=== PATIENT | female | born 1990 | race Caucasian/White ===

== ENCOUNTER 2017-05-13 14:22 | Emergency (ER) | payer BC ==
--- NOTE | 2017-05-13 14:45 | ED Physician Documentation ---
PD HPI LOWER EXT INJURY - Stated complaint Stated Complaint: R ANKLE INJ - Chief complaint Chief Complaint: Ext Problem - History obtained from History obtained from: Patient - History of Present Illness PD HPI LOW EXT INJURY LOCATION: Right, Ankle Type of injury: Twist (inversion) Timing - onset: Today Timing - details: Abrupt onset, Still present Improved by: Rest Worsened by: Moving, Palpating Associated symptoms: Numbness (in toes), Swelling. No: Weakness Similar symptoms before: Has not had sx before Recently seen: Not recently seen Review of Systems Skin: denies: Abrasion (s), Laceration (s) Neurologic: reports: Numbness (in toes). 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 Past Surgical History: Yes General: Gastric surgery HEENT: Tonsil/Adenoidectomy - Present Medications Home Medications: Ambulatory Orders Medication Instructions Recorded Confirmed Multivitamin [Multiple Vitamins] 1 each PO DAILY 05/13/17 05/13/17 - Allergies Allergies/Adverse Reactions: Allergies Allergy/AdvReac Type Severity Reaction Status Date / Time Penicillins Allergy Hives Verified 05/13/17 14:32 - Social History Does the pt smoke?: Yes Smoking Status: Current every day smoker Does the pt drink ETOH?: Yes Does the pt have substance abuse?: No - Immunizations Immunizations are current?: Yes - POLST Patient has POLST: No PD ED PE NORMAL - Vitals Vital signs reviewed: Yes - General General: Alert and oriented X 3, No acute distress, Well developed/nourished - Derm Derm: Normal color, Warm and dry, No rash - Extremities Extremities: No deformity, No calf tenderness / cord, Other (tender lateral malleolus and inferior to it. Achilles and medial ankle, foot not tender. ) - Neuro Neuro: Alert and oriented X 3, No motor deficit, No sensory deficit Results - Vitals Vitals: Vital Signs - 24 hr 05/13/17 05/13/17 14:29 15:59 Temperature 37.1 C 36.7 C Heart Rate 99 99 Respiratory 16 18 Rate Blood Pressure 141/91 H 140/85 H O2 Saturation 100 97 Oxygen O2 Source Room air - Labs Labs: Laboratory Tests 05/13/17 14:45 Ur Specific [place] <=1.005 Urine HCG, Qual NEGATIVE - Rads (name of study) right ankle Radiology: Prelim report reviewed (no fracture) PD MEDICAL DECISION MAKING - ED course Complexity details: reviewed results, considered differential, d/w patient Departure - Departure Disposition: 01 Home, Self Care Clinical Impression: Ankle sprain Qualifiers: Encounter type: initial encounter Involved ligament of ankle: other ligament Laterality: right Qualified Code(s): S93.491A - Sprain of other ligament of right ankle, initial encounter Condition: Stable Record reviewed to determine appropriate education?: Yes Instructions: ED Sprain Ankle W X Ray Follow-Up: Carlie Romo ARNP [Primary Care Provider] - Comments: Slade wrap ice and elevate often for the swelling. Tylenol or ibuprofen as needed for pains. There is no fractures on x-ray. However for the sprain you do want to give the ligaments some support and to use the ankle brace when up and around for the next 2-3 weeks until fully healed. Crutches if needed for discomfort short-term but progress weightbearing and activity as able. Recheck if not better in the next week or so. Discharge Date/Time: 05/13/17 16:04
[2017-05-13 14:59] LABS: HCG UR QUAL NEGATIVE
--- NOTE | 2017-05-13 15:36 | XRAY Preliminary Report ---
Exam: XR ANKLE 3 VIEW RT IMPRESSION: No evidence of fracture or dislocation. [facility] SITE ID: [id number]
--- NOTE | 2017-05-13 15:39 | XRAY Report ---
EXAM: RIGHT ANKLE RADIOGRAPHY EXAM DATE: 05/13/2017 03:16 PM. CLINICAL HISTORY: Ankle pain COMPARISON: None. TECHNIQUE: 3 views. FINDINGS: Bones: No fracture or focal bony lesion. Joints: No evidence of dislocation. Soft Tissues: There is lateral ankle soft tissue swelling. IMPRESSION: No evidence of fracture or dislocation. [facility] Referring Provider Line: [phone] SITE ID: [id number]
[2017-05-13 15:59] VITALS: BP 140/85
== END 2017-05-13 16:04 | disposition home or self-care (01) ==
LOC: ED 14:22
DX: S93.491A Sprain of other ligament of right ankle, initial encounter (principal); X50.9XXA Other and unspecified overexertion or strenuous movements or postures, initial encounter; F17.200 Nicotine dependence, unspecified, uncomplicated
CPT/HCPCS: 81025; 99283

== ENCOUNTER 2017-11-13 10:50 | Emergency (ER) | payer BC ==
[2017-11-13 11:35] LABS: BASOPHILS # (AUTO) 0.1 10^3/uL (0.0-0.1); BASOPHILS % (AUTO) 1.3 %; EOSINOPHILS # (AUTO) 0.2 10^3/uL (0.0-0.7); EOSINOPHILS % (AUTO) 3.1 %; HGB - HEMOGLOBIN 11.7 g/dL (12.0-16.0); LYMPHOCYTES % (AUTO) 26.9 %; MEAN CORPUSCULAR HEMOGLOBIN 26.8 pg (27.0-31.0); MEAN CORPUSCULAR VOLUME 81.2 fL (81.0-99.0); MEAN PLATELET VOLUME 8.7 fL (7.9-10.8); MONOCYTES # (AUTO) 0.7 10^3/uL (0.0-1.0); MONOCYTES % (AUTO) 9.3 %; NEUTROPHILS # (AUTO) 4.4 10^3/uL (1.5-6.6); NEUTROPHILS % (AUTO) 59.4 %; PLT - PLATELET COUNT 261 10^3/uL (130-450); RED BLOOD COUNT 4.36 10^6/uL (4.20-5.40); RED CELL DISTRIBUTION WIDTH 18.1 % (12.0-15.0); WHITE BLOOD COUNT 7.3 x10^3/uL (4.8-10.8)
[2017-11-13 11:39] LABS: BILIRUBIN,URINE NEGATIVE (NEGATIVE); GLUCOSE, URINE (UA) NEGATIVE (NEGATIVE); KETONES,URINE (UA) NEGATIVE (NEGATIVE); LEUKOCYTE ESTERASE, URINE NEGATIVE (NEGATIVE); NITRITE,URINE POSITIVE (NEGATIVE); OCCULT BLOOD,URINE NEGATIVE (NEGATIVE); PH,URINE 5.5 PH (5.0-7.5); PROTEIN,URINE NEGATIVE (NEGATIVE); UROBILINOGEN,URINE 0.2 (NORMAL) E.U./dL (NORMAL)
[2017-11-13 11:40] LABS: ALBUMIN 4.2 g/dL (3.2-5.5); ALBUMIN/GLOBULIN RATIO 1.1 (1.0-2.2); BILIRUBIN,TOTAL 0.3 mg/dL (0.2-1.0); CALCIUM 8.6 mg/dL (8.5-10.3); CREATININE 0.8 mg/dL (0.4-1.0); TOTAL PROTEIN 7.9 g/dL (6.7-8.2)
[2017-11-13 11:42] LABS: CLARITY,URINE CLEAR (CLEAR); HCG UR QUAL NEGATIVE
[2017-11-13 11:48] LABS: BACTERIA,URINE Many /HPF (None Seen); RBC,URINE None Seen /HPF (0-5); SQUAMOUS EPITHELIAL CELL,UR RARE Squamous (<= Few)
--- NOTE | 2017-11-13 12:34 | CT Report ---
EXAM: CT ABDOMEN AND PELVIS EXAM DATE: 11/13/2017 12:10 PM. CLINICAL HISTORY: RLQ pain. COMPARISONS: 03/22/2015. TECHNIQUE: Routine helical CT imaging was performed through the abdomen and pelvis. IV contrast: No. Enteric contrast: No. Reconstructions: Coronal and sagittal. In accordance with CT protocol optimization, one or more of the following dose reduction techniques w ere utilized for this exam: automated exposure control, adjustment of mA and/or KV based on patient s ize, or use of iterative reconstructive technique. FINDINGS: Lung Bases: Unremarkable. Liver: The focal abnormal low density, 1 cm in the left lobe near the falciform ligament unchanged, s uggesting focal fatty replacement, of uncertain clinical significance; no lobular contour changes or masses. Gallbladder/Bile Ducts: Unremarkable. Spleen: Normal. Pancreas: Normal. Adrenal Glands: Normal. Kidneys: No stone, masses or hydronephrosis. Peritoneal Cavity/Bowel: 1. No free fluid, free air or adenopathy. 2. Status post gastric bypass is noted, unremarkable. The prior distended stomach and the percutaneou s gastrostomy tube are no longer seen. 3. No bowel dilatation, thickened bowel wall or acute inflammatory process. The appendix is well visu alized and normal. Pelvic Organs: There is a new lesion with hyperdense rim in the right ovary, likely a hemorrhagic cys t, 1.3 cm in diameter. IUD is again seen, unremarkable location. The bladder and visualized pelvic or lucila are within normal limits. Vasculature: No aneurysms or other significant abnormality. Bones: No significant abnormality. Other: No hernia seen. The prior foci of deep subcutaneous soft tissue gas in the bilateral anterior mid abdomen and the left lower abdomen are no longer visualized. IMPRESSION: 1. Normal appendix. 2. New right ovarian hemorrhagic cyst, 1.3 cm in diameter. 3. Status post gastric pass, unremarkable. Interval resolution of the distended stomach and removal o f the percutaneous gastrostomy tube. Negative for obstruction. 4. Negative for renal stone, hydronephrosis or perirenal fat stranding. [facility] Referring Provider Line: [phone] SITE ID: [id number]
--- NOTE | 2017-11-13 12:50 | ED Physician Documentation ---
PD HPI ABD PAIN - Stated complaint Stated Complaint: ABD PX - Chief complaint Chief Complaint: Abd Pain - History obtained from History obtained from: Patient - History of Present Illness Timing - onset: Yesterday Timing - duration: Days (1) Timing - details: Gradual onset, Still present, Waxing and waning Quality: Sharp, Pain Location: RLQ Improved by: Laying still Worsened by: Moving, Position, Palpation Associated symptoms: Nausea. No: Vomiting, Hematemesis, Diarrhea, Constipation , Dysuria, Hematuria, Chest pain, Dizzy Similar symptoms before: Has not had sx before Recently seen: Not recently seen - Additional information Additional information: 27-year-old female who is status post Shelley-en-Y has developed some right lower quadrant abdominal pain beginning yesterday. She felt when this started yesterday that she was having some abnormal pelvic cramping consistent with what she has had with menses previously. She has an IUD in place and has not been having menses. She has somewhat decreased appetite no fever persistent pain and she is come to the emergency department for evaluation of right lower quadrant abdominal pain. Review of Systems Constitutional: denies: Fever, Chills, Myalgias Eyes: denies: Decreased vision Ears: denies: Ear pain Nose: denies: Congestion Throat: denies: Sore throat Cardiac: denies: Chest pain / pressure, Palpitations Respiratory: denies: Dyspnea, Cough GI: reports: Abdominal Pain, Nausea. 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 - Past Surgical History Past Surgical History: Yes General: Gastric surgery HEENT: Tonsil/Adenoidectomy - Present Medications Home Medications: Ambulatory Orders Medication Instructions Recorded Confirmed Multivitamin [Multiple Vitamins] 1 each PO DAILY 05/13/17 05/13/17 HYDROcod/ACETAM 5/325 [[place] 5/325] 1 - 2 ea PO Q6H PRN #15 tablet 11/13/17 - Allergies Allergies/Adverse Reactions: Allergies Allergy/AdvReac Type Severity Reaction Status Date / Time Penicillins Allergy Hives Verified 11/13/17 10:58 - Social History Does the pt smoke?: Yes Smoking Status: Current every day smoker Does the pt drink ETOH?: Yes Does the pt have substance abuse?: No - Immunizations Immunizations are current?: Yes - POLST Patient has POLST: No PD ED PE NORMAL - Vitals Vital signs reviewed: Yes (Tachycardic and hypertensive mild) - General General: Alert and oriented X 3, No acute distress, Well developed/nourished - HEENT HEENT: Atraumatic, PERRL, EOMI - Neck Neck: Supple, no meningeal sign, No bony TTP - Cardiac Cardiac: RRR, No murmur - Respiratory Respiratory: No respiratory distress, Clear bilaterally - Abdomen Abdomen: Soft, Other (There is right lower quadrant tenderness to deep palpation. There is minimal guarding there is no rebound tenderness there is no referred tenderness.) - Back Back: No CVA TTP, No spinal TTP - Derm Derm: Normal color, Warm and dry, No rash - Extremities Extremities: No deformity, No edema - Neuro Neuro: No motor deficit, No sensory deficit Eye Opening: Spontaneous Motor: Obeys Commands Verbal: Oriented GCS Score: 15 - Psych Psych: Normal mood, Normal affect Results - Vitals Vitals: Vital Signs - 24 hr 11/13/17 11/13/17 10:53 12:19 Temperature 37.3 C Heart Rate 102 H 84 Respiratory 18 16 Rate Blood Pressure 133/84 H 131/86 H O2 Saturation 100 97 Oxygen O2 Source Room air - Labs Labs: Laboratory Tests 11/13/17 11/13/17 11/13/17 11:10 11:10 11:10 WBC 7.3 RBC 4.36 Hgb 11.7 L Hct 35.4 L MCV 81.2 MCH 26.8 L MCHC 33.0 RDW 18.1 H Plt Count 261 MPV 8.7 Neut # 4.4 Lymph # 2.0 [place] # 0.7 Eos # 0.2 Baso # 0.1 Absolute Nucleated RBC 0.00 Nucleated RBC % 0.0 Sodium 136 Potassium 4.0 Chloride 103 Carbon Dioxide 19 L Anion Gap 14.0 H BUN 7 Creatinine 0.8 Estimated GFR (MDRD) 85 L Glucose 82 Calcium 8.6 Total Bilirubin 0.3 AST 35 ALT 26 Alkaline Phosphatase 45 Total Protein 7.9 Albumin 4.2 Globulin 3.7 Albumin/Globulin Ratio 1.1 Lipase 27 Urine Color Urine Clarity Urine pH Ur Specific [place] <=1.005 Urine Protein Urine Glucose (UA) Urine Ketones Urine Occult Blood Urine Nitrite Urine Bilirubin Urine Urobilinogen Ur Leukocyte Esterase Urine RBC Urine WBC Ur Squamous Epith Cells Urine Bacteria Ur Microscopic Review Urine Culture Comments Urine HCG, Qual NEGATIVE 11/13/17 11:10 WBC RBC Hgb Hct MCV MCH MCHC RDW Plt Count MPV Neut # Lymph # [place] # Eos # Baso # Absolute Nucleated RBC Nucleated RBC % Sodium Potassium Chloride Carbon Dioxide Anion Gap BUN Creatinine Estimated GFR (MDRD) Glucose Calcium Total Bilirubin AST ALT Alkaline Phosphatase Total Protein Albumin Globulin Albumin/Globulin Ratio Lipase Urine Color YELLOW Urine Clarity CLEAR Urine pH 5.5 Ur Specific [place] <=1.005 Urine Protein NEGATIVE Urine Glucose (UA) NEGATIVE Urine Ketones NEGATIVE Urine Occult Blood NEGATIVE Urine Nitrite POSITIVE H Urine Bilirubin NEGATIVE Urine Urobilinogen 0.2 (NORMAL) Ur Leukocyte Esterase NEGATIVE Urine RBC None Seen Urine WBC 0-3 Ur Squamous Epith Cells RARE Squamous Urine Bacteria Many H Ur Microscopic Review INDICATED Urine Culture Comments INDICATED Urine HCG, Qual - Rads (name of study) CT abdomen and pelvis Radiology: Prelim report reviewed (Impression: 1. Normal appendix. 2. New right ovarian hemorrhagic cyst, 1.3 cm in diameter. 3. Status post gastric bypass, unremarkable. Interval resolution of the distended stomach and removal of percutaneous gastrostomy tube. Negative for obstruction. 4. Negative for renal stone, hydronephrosis or perirenal fat stranding.), EMP read indepedently , See rad report PD MEDICAL DECISION MAKING - ED course Complexity details: reviewed old records, reviewed results, re-evaluated patient , considered differential, d/w patient ED course: 27-year-old female status post Shelley-en-Y has developed right lower quadrant abdominal pain and on CT scanning appears to have a small right hemorrhagic ovarian cyst. This is consistent with the history and physical examination as well. We will place her on a short course of pain medication as needed and expect resolution. Departure - Departure Disposition: 01 Home, Self Care Clinical Impression: Hemorrhagic cyst of right ovary Condition: Stable Instructions: ED Cyst Ovarian Follow-Up: Carlie Romo ARNP [Primary Care Provider] - Prescriptions: HYDROcod/ACETAM 5/325 [[place] 5/325] 1 - 2 ea PO Q6H PRN #15 tablet PRN Reason: Pain
[2017-11-13 13:08] VITALS: BP 146/84
== END 2017-11-13 13:08 | disposition home or self-care (01) ==
LOC: ED 10:50
DX: N83.201 Unspecified ovarian cyst, right side (principal); F17.200 Nicotine dependence, unspecified, uncomplicated
CPT/HCPCS: 36415; 74176; 80053; 81001; 81003; 81025; 83690; 85025; 87077; 87086; 99283

== ENCOUNTER 2017-11-27 10:56 | Outpatient (CLI) | payer BC ==
[2017-11-27 11:45] LABS: BASOPHILS # (AUTO) 0.1 10^3/uL (0.0-0.1); BASOPHILS % (AUTO) 2.1 %; EOSINOPHILS # (AUTO) 0.2 10^3/uL (0.0-0.7); EOSINOPHILS % (AUTO) 3.4 %; HGB - HEMOGLOBIN 11.6 g/dL (12.0-16.0); LYMPHOCYTES # (AUTO) 1.6 10^3/uL (1.5-3.5); LYMPHOCYTES % (AUTO) 33.3 %; MEAN CORPUSCULAR HEMOGLOBIN 26.8 pg (27.0-31.0); MEAN CORPUSCULAR HGB CONC 32.8 g/dL (32.0-36.0); MEAN CORPUSCULAR VOLUME 81.6 fL (81.0-99.0); MEAN PLATELET VOLUME 8.7 fL (7.9-10.8); MONOCYTES # (AUTO) 0.5 10^3/uL (0.0-1.0); MONOCYTES % (AUTO) 9.8 %; NEUTROPHILS # (AUTO) 2.4 10^3/uL (1.5-6.6); NEUTROPHILS % (AUTO) 51.4 %; PLT - PLATELET COUNT 229 10^3/uL (130-450); RED BLOOD COUNT 4.34 10^6/uL (4.20-5.40); RED CELL DISTRIBUTION WIDTH 17.7 % (12.0-15.0); WHITE BLOOD COUNT 4.7 x10^3/uL (4.8-10.8)
[2017-11-27 11:59] LABS: ALBUMIN 4.2 g/dL (3.2-5.5); ALBUMIN/GLOBULIN RATIO 1.2 (1.0-2.2); ALKALINE PHOSPHATASE 43 IU/L (42-121); ALT ALANINE AMINOTRANSFERASE 35 IU/L (10-60); AST ASPARTATE AMINOTRANSFERASE 65 IU/L (10-42); BILIRUBIN,TOTAL 0.8 mg/dL (0.2-1.0); BUN - BLOOD UREA NITROGEN < 5 mg/dL (6-20); CALCIUM 8.6 mg/dL (8.5-10.3); CARBON DIOXIDE - CO2 22 mmol/L (21-32); CHLORIDE 102 mmol/L (101-111); CREATININE 0.6 mg/dL (0.4-1.0); GFR - MDRD 118 (>89); GLUCOSE 78 mg/dL (70-100); SODIUM 135 mmol/L (135-145); TOTAL PROTEIN 7.6 g/dL (6.7-8.2)
[2017-11-27 12:16] LABS: FERRITIN 13.6 ng/mL (11.0-306.8)
[2017-11-27 12:19] LABS: FOLATE 19.72 ng/mL (5.90 - >24.8)
[2017-11-27 12:25] LABS: CRP - C-REACTIVE PROTEIN < 1.0 mg/dL (0-1.0)
== END 2017-11-27 10:57 | disposition home or self-care (01) ==
LOC: LAB.R 10:56
PROVIDERS: ATTEND Nurse Practitioner Primary Care
DX: D64.9 Anemia, unspecified (principal); Z79.899 Other long term (current) drug therapy; R58 Hemorrhage, not elsewhere classified
CPT/HCPCS: 80053; 82607; 82728; 82746; 85025; 85651; 86140

== ENCOUNTER 2018-04-12 07:54 | Emergency (ER) | payer BC ==
[2018-04-12] MEDS ORDERED: SODIUM CHLORIDE 0.9% 1,000 ML IV ONE (08:22)
[2018-04-12 08:29] LABS: BILIRUBIN,URINE NEGATIVE (NEGATIVE); GLUCOSE, URINE (UA) NEGATIVE (NEGATIVE); KETONES,URINE (UA) NEGATIVE (NEGATIVE); LEUKOCYTE ESTERASE, URINE NEGATIVE (NEGATIVE); NITRITE,URINE POSITIVE (NEGATIVE); OCCULT BLOOD,URINE NEGATIVE (NEGATIVE); PROTEIN,URINE NEGATIVE (NEGATIVE); UROBILINOGEN,URINE 0.2 (NORMAL) E.U./dL (NORMAL)
[2018-04-12 08:33] LABS: CLARITY,URINE HAZY (CLEAR); HCG UR QUAL NEGATIVE
[2018-04-12] MEDS ORDERED: MORPHINE 2 MG/ML CARPUJECT IVP STA (08:33)
[2018-04-12] MEDS ORDERED: ONDANSETRON 4 MG/2 ML VIAL IVP STA (08:33)
--- NOTE | 2018-04-12 08:36 | ED Physician Documentation ---
History of Present Illness - Stated complaint Stated Complaint: ABD PX - Chief complaint Chief Complaint: General - Additonal information Additional information: hx from pt 27 f IUD doubt preg s/p peter n Y 2007 - does not think GB was removed at that time 2015 had what sounds like volvulus with subsequent perf and sepsis transferred to [facility] for surgery also ovarian cyst this January to ED today with 5 days of diffuse abd pain, no NV, loose non bloody BMs, no dysuria, no ag bleed or dc, mylagias and rigors but no fever, shaky all over no travel no bad food no sick contacts last antibiotics were January Review of Systems Constitutional: reports: Chills, Myalgias. denies: Fever Cardiac: reports: Chest pain / pressure (occ fleeting) Respiratory: denies: Dyspnea GI: reports: Abdominal Pain, Diarrhea. denies: Nausea, Vomiting, Bloody / black stool : reports: Control (IUD). 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 Past Surgical History: Yes General: Gastric surgery HEENT: Tonsil/Adenoidectomy - Present Medications Home Medications: Ambulatory Orders Medication Instructions Recorded Confirmed Multivitamin [Multiple Vitamins] 1 each PO DAILY 05/13/17 05/13/17 HYDROcod/ACETAM 5/325 [[place] 5/325] 1 - 2 ea PO Q6H PRN #15 tablet 11/13/17 Cephalexin [Keflex] 500 mg PO Q6H #28 capsule 04/12/18 Phenazopyridine [Pyridium] 100 mg PO Q8H PRN #9 tablet 04/12/18 - Allergies Allergies/Adverse Reactions: Allergies Allergy/AdvReac Type Severity Reaction Status Date / Time Penicillins Allergy Hives Verified 04/12/18 08:04 - Social History Does the pt smoke?: Yes Smoking Status: Current every day smoker Does the pt drink ETOH?: Yes Does the pt have substance abuse?: No - Immunizations Immunizations are current?: Yes - POLST Patient has POLST: No PD ED PE NORMAL - Vitals Vital signs reviewed: Yes (tachy) - General General: Alert and oriented X 3 - HEENT HEENT: No: Moist mucous membranes (sticky) - Neck Neck: Supple, no meningeal sign - Cardiac Cardiac: RRR (tachy) - Respiratory Respiratory: No respiratory distress, Clear bilaterally - Abdomen Abdomen: Soft, Other (diffuse TTP upper > lower s guaring or reboudn and pt moves about in bed easily). No: Normal bowel sounds (decreased) - Back Back: No CVA TTP, Other (back soreness per pt but not focal CVA TTP) - Derm Derm: Normal color - Neuro Neuro: Alert and oriented X 3 Results - Vitals Vitals: Vital Signs - 24 hr 04/12/18 04/12/18 04/12/18 08:00 11:02 13:15 Temperature 36.4 C L 37.1 C 37.0 C Heart Rate 133 H 78 72 Respiratory 18 16 18 Rate Blood Pressure 157/105 H 131/90 H 136/89 H O2 Saturation 99 98 99 Oxygen O2 Source Room air - Labs Labs: Laboratory Tests 04/12/18 04/12/18 04/12/18 08:24 08:36 08:36 WBC 4.8 RBC 4.16 L Hgb 11.3 L Hct 33.6 L MCV 80.7 L MCH 27.1 MCHC 33.6 RDW 18.1 H Plt Count 231 MPV 8.1 Neut # (Auto) 2.8 Lymph # (Auto) 1.0 L [place] # (Auto) 0.8 Eos # (Auto) 0.1 Baso # (Auto) 0.1 Absolute Nucleated RBC 0.00 Nucleated RBC % 0.0 Sodium 135 Potassium 3.9 Chloride 100 L Carbon Dioxide 21 Anion Gap 14.0 H BUN 7 Creatinine 0.8 Estimated GFR (MDRD) 85 L Glucose 76 Lactic Acid Calcium 8.9 Total Bilirubin 0.6 AST 104 H ALT 63 H Alkaline Phosphatase 48 Total Protein 8.0 Albumin 4.4 Globulin 3.6 Albumin/Globulin Ratio 1.2 Lipase 38 Urine Color YELLOW Urine Clarity HAZY Urine pH 6.0 Ur Specific [place] 1.025 Urine Protein NEGATIVE Urine Glucose (UA) NEGATIVE Urine Ketones NEGATIVE Urine Occult Blood NEGATIVE Urine Nitrite POSITIVE H Urine Bilirubin NEGATIVE Urine Urobilinogen 0.2 (NORMAL) Ur Leukocyte Esterase NEGATIVE Urine RBC 0-5 Urine WBC 0-3 Ur Squamous Epith Cells MOD Squamous H Urine Bacteria Many H Urine Casts 0-2 Granular Casts Ur Microscopic Review INDICATED Urine Culture Comments NOT INDICATED Urine HCG, Qual NEGATIVE 04/12/18 04/12/18 08:36 11:45 WBC RBC Hgb Hct MCV MCH MCHC RDW Plt Count MPV Neut # (Auto) Lymph # (Auto) [place] # (Auto) Eos # (Auto) Baso # (Auto) Absolute Nucleated RBC Nucleated RBC % Sodium Potassium Chloride Carbon Dioxide Anion Gap BUN Creatinine Estimated GFR (MDRD) Glucose Lactic Acid 2.8 H 0.6 Calcium Total Bilirubin AST ALT Alkaline Phosphatase Total Protein Albumin Globulin Albumin/Globulin Ratio Lipase Urine Color Urine Clarity Urine pH Ur Specific [place] Urine Protein Urine Glucose (UA) Urine Ketones Urine Occult Blood Urine Nitrite Urine Bilirubin Urine Urobilinogen Ur Leukocyte Esterase Urine RBC Urine WBC Ur Squamous Epith Cells Urine Bacteria Urine Casts Ur Microscopic Review Urine Culture Comments Urine HCG, Qual - Rads (name of study) CT AP Radiology: See rad report (with PO and IV con - no acute process, s/p gastric bypass, has GB and appendix but no acute process, no perf, no PO con leak, no SBO, ant ovarian cyst ) PD MEDICAL DECISION MAKING - ED course ED course: CT neg for acute process labs fine except + UA CT neg for acute process (with PO and IV con) - no leak, no perf, no volvulus, no SBO, no acute lowell or appy, ant ovarian cysts s evidnece of torsion (IV con) or FF/rupture HR down and lactate cleared with IVF will reasses but hopefully DC - Sepsis Event Vital Signs: Vital Signs - 24 hr 04/12/18 04/12/18 04/12/18 08:00 11:02 13:15 Temperature 36.4 C L 37.1 C 37.0 C Heart Rate 133 H 78 72 Respiratory 18 16 18 Rate Blood Pressure 157/105 H 131/90 H 136/89 H O2 Saturation 99 98 99 Oxygen O2 Source Room air Departure - Departure Disposition: 01 Home, Self Care Clinical Impression: Abdominal pain Condition: Good Instructions: ED Abdominal Pain Unkn Cause, ED UTI Cystitis Female Follow-Up: Carlie Romo ARNP [Primary Care Provider] - Prescriptions: Cephalexin [Keflex] 500 mg PO Q6H #28 capsule Phenazopyridine [Pyridium] 100 mg PO Q8H PRN #9 tablet PRN Reason: painful urination Comments: Your labs were fine except for a lactate level that cleared with IV fluids and a urine infection The CT scan did not show any contrast leaking from your bypass site, no twisting or perforation or blockage of the bowels, you do still have your appendix and gallbladder but they are not infected, and small bilateral ovarian cysts which are unlikely to be causing pain. Given the reassuring work up I think i is safe to discharge you with antibiotics for the UTI However you have a complicated abdominal surgical history and have gotten worse after reassuring work ups before So if things change ro get worse in any way, please come back to the ER - sometimes problems that could not be identified initially become apparent over time Also we have blood and urine cultures running and will call you if they are positive and a treatment change is needed Follow up with your PMD tomorrow as scheduled Forms: Activity restrictions
[2018-04-12 08:38] LABS: BACTERIA,URINE Many /HPF (None Seen); RBC,URINE 0-5 /HPF (0-5); SQUAMOUS EPITHELIAL CELL,UR MOD Squamous (<= Few)
[2018-04-12 08:40] LABS: BASOPHILS # (AUTO) 0.1 10^3/uL (0.0-0.1); BASOPHILS % (AUTO) 1.4 %; EOSINOPHILS # (AUTO) 0.1 10^3/uL (0.0-0.7); EOSINOPHILS % (AUTO) 2.3 %; HGB - HEMOGLOBIN 11.3 g/dL (12.0-16.0); LYMPHOCYTES % (AUTO) 20.2 %; MEAN CORPUSCULAR HEMOGLOBIN 27.1 pg (27.0-31.0); MEAN CORPUSCULAR HGB CONC 33.6 g/dL (32.0-36.0); MEAN CORPUSCULAR VOLUME 80.7 fL (81.0-99.0); MEAN PLATELET VOLUME 8.1 fL (7.9-10.8); MONOCYTES # (AUTO) 0.8 10^3/uL (0.0-1.0); MONOCYTES % (AUTO) 16.7 %; NEUTROPHILS # (AUTO) 2.8 10^3/uL (1.5-6.6); NEUTROPHILS % (AUTO) 59.4 %; PLT - PLATELET COUNT 231 10^3/uL (130-450); RED BLOOD COUNT 4.16 10^6/uL (4.20-5.40); RED CELL DISTRIBUTION WIDTH 18.1 % (12.0-15.0); WHITE BLOOD COUNT 4.8 x10^3/uL (4.8-10.8)
[2018-04-12 08:52] LABS: ALBUMIN 4.4 g/dL (3.2-5.5); ALBUMIN/GLOBULIN RATIO 1.2 (1.0-2.2); BILIRUBIN,TOTAL 0.6 mg/dL (0.2-1.0); CALCIUM 8.9 mg/dL (8.5-10.3); CREATININE 0.8 mg/dL (0.4-1.0)
[2018-04-12] MEDS ORDERED: IOPAMIDOL-300 50 ML VIAL ONE (09:10)
[2018-04-12] MEDS ORDERED: IOPAMIDOL-300 100 ML VIAL ONE (09:10)
[2018-04-12] MEDS ORDERED: IOPAMIDOL-300 50 ML VIAL PO ONE (10:27)
[2018-04-12] MEDS ORDERED: IOPAMIDOL-300 100 ML VIAL IVP ONE (10:27)
--- NOTE | 2018-04-12 11:58 | CT Report ---
Reason: diffuse abd pain, s/p rouxnY, volvulus, perf Procedure Date: 04/12/2018 Accession Number: [id number] / [id number] Procedure: CT - Abdomen/Pelvis W/ CPT Code: FULL RESULT: EXAM: CT ABDOMEN AND PELVIS EXAM DATE: 04/12/2018 10:21 AM. CLINICAL HISTORY: Diffuse abd pain, s/p rouxnY, volvulus, perf. COMPARISONS: 11/13/2017. TECHNIQUE: Routine helical CT imaging was performed through the abdomen and pelvis. IV contrast: ISOVUE 300 80mL. Enteric contrast: No. Reconstructions: Coronal and sagittal. In accordance with CT protocol optimization, one or more of the following dose reduction techniques were utilized for this exam: automated exposure control, adjustment of mA and/or KV based on patient size, or use of iterative reconstructive technique. FINDINGS: Lung Bases: Unremarkable. Liver: Fatty infiltration. Low density adjacent to falciform ligament normal variant Gallbladder/Bile Ducts: Unremarkable. Spleen: Normal. Pancreas: Normal. Adrenal Glands: Normal. Kidneys: Normal. No masses or hydronephrosis. Peritoneal Cavity/Bowel: Status post gastric bypass. Contrast is in stomach, small bowel and colon without evidence of obstruction.. No retroperitoneal adenopathy. No free fluid in the abdomen. The appendix is well visualized and normal. Pelvic Organs: IUD in pelvis. Bilateral ovarian cysts 1.5-1.7 cm. The bladder is unremarkable. Vasculature: No aneurysms or other significant abnormality. Bones: No significant abnormality. Other: None. IMPRESSION: 1. Status post gastric bypass. No evidence of obstruction. 2. Bilateral ovarian cyst 1.5-1.7 cm. 3. Normal appendix. 4. Fatty infiltrated liver [facility]
[2018-04-12] MEDS ORDERED: cefTRIAXone 1 GM in SODIUM CHLORIDE 0.9% MINIBAG 100 ML IV STA (12:44)
[2018-04-12 13:15] VITALS: BP 136/89
== END 2018-04-12 14:00 | disposition home or self-care (01) ==
LOC: ED 07:54
DX: N39.0 Urinary tract infection, site not specified (principal); R10.84 Generalized abdominal pain; N83.202 Unspecified ovarian cyst, left side; N83.201 Unspecified ovarian cyst, right side; Z98.84 Bariatric surgery status; Z97.5 Presence of (intrauterine) contraceptive device; F17.200 Nicotine dependence, unspecified, uncomplicated
CPT/HCPCS: 36415; 74177; 80053; 81001; 81025; 83605; 83690; 85025; 87040; 96361; 96374; 96375; 99283; 99284; Q9967; 81003; 87086

== ENCOUNTER 2018-09-08 16:41 | Emergency (ER) | payer BC ==
--- NOTE | 2018-09-08 17:53 | ED Physician Documentation ---
PD HPI HEAD INJURY - Stated complaint Stated Complaint: FALL - Chief complaint Chief Complaint: Neuro - History obtained from History obtained from: Patient, Family - History of Present Illness Mechanism of head injury: Fell Where head injury occurred: Street Timing - onset: How many hours ago (8) Pain level max: 5 Pain level now: 3 Location of injury: Left, Front Quality of pain: Aching, Dull Associated symptoms: No: LOC, AMS, Amnesia, Nausea / vomiting, Neck pain, Paresthesias, Seizures, Ear drainage, Nasal drainage Symptoms improve with: Rest Symptoms worsen with: Palpation. No: Movement, Light, Noise Contributing factors: No: Anticoagulated, Intoxicated Similar symptoms before: Has not had sx before Recently seen: Not recently seen Review of Systems Ten Systems: 10 systems reviewed and negative Constitutional: denies: Fever, Chills Ears: denies: Ear pain Nose: denies: Rhinorrhea / runny nose, Congestion Throat: denies: Sore throat Cardiac: denies: Chest pain / pressure Respiratory: denies: Dyspnea, Cough GI: denies: Abdominal Pain, Nausea, Vomiting, Diarrhea : denies: Dysuria, Now EGA Skin: denies: Rash Musculoskeletal: denies: Neck pain, Back pain Neurologic: denies: Focal weakness, Numbness, Confused, Altered mental status, LOC PD PAST MEDICAL HISTORY - Past Medical History Cardiovascular: None Respiratory: None Endocrine/Autoimmune: None 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 - Past Surgical History Past Surgical History: Yes General: Gastric surgery HEENT: Tonsil/Adenoidectomy - Present Medications Home Medications: Ambulatory Orders Medication Instructions Recorded Confirmed Multivitamin [Multiple Vitamins] 1 each PO DAILY 05/13/17 05/13/17 HYDROcod/ACETAM 5/325 [[place] 5/325] 1 - 2 ea PO Q6H PRN #15 tablet 11/13/17 Cephalexin [Keflex] 500 mg PO Q6H #28 capsule 04/12/18 Phenazopyridine [Pyridium] 100 mg PO Q8H PRN #9 tablet 04/12/18 - Allergies Allergies/Adverse Reactions: Allergies Allergy/AdvReac Type Severity Reaction Status Date / Time Penicillins Allergy Hives Verified 04/12/18 08:04 - Social History Does the pt smoke?: Yes Smoking Status: Current every day smoker Does the pt drink ETOH?: Yes Does the pt have substance abuse?: No - Immunizations Immunizations are current?: Yes - POLST Patient has POLST: No PD ED PE NORMAL - Vitals Vital signs reviewed: Yes - General General: Alert and oriented X 3, No acute distress - HEENT HEENT: PERRL, EOMI, Moist mucous membranes, Pharynx benign, Other (Small hematoma to the left parietal occipital area. No palpable skull fractures. Small abrasion to the forehead. Otherwise normal exam) - Neck Neck: Supple, no meningeal sign, No bony TTP - Cardiac Cardiac: RRR - Respiratory Respiratory: No respiratory distress, Clear bilaterally - Abdomen Abdomen: Soft, Non tender, Non distended - Back Back: No spinal TTP - Derm Derm: Warm and dry - Extremities Extremities: Normal ROM s pain, No edema - Neuro Neuro: Alert and oriented X 3, grocery checker 2-12 intact, No motor deficit, No sensory deficit, Normal speech, Other (normal cerebellar tests) Eye Opening: Spontaneous Motor: Obeys Commands Verbal: Oriented GCS Score: 15 - Psych Psych: Normal mood, Normal affect Results - Vitals Vitals: Vital Signs - 24 hr 09/08/18 16:46 Temperature 36.4 C L Heart Rate 108 H Respiratory 18 Rate Blood Pressure 150/101 H O2 Saturation 99 Oxygen O2 Source Room air PD MEDICAL DECISION MAKING - ED course Complexity details: considered differential, d/w patient, d/w family ED course: 28-year-old female presents to the emergency department with a closed head inj ury. She is GCS 15. This is been over 8 hours since the incident. Discussed risks and benefits of head CT, the patient and family declined this at this time. Head injury instructions given at bedside. Patient and family counseled regarding signs and symptoms for which I believe and urgent re-evaluation would be necessary. Patient with good understanding of and agreement to plan and is comfortable going home at this time This document was made in part using voice recognition software. While efforts are made to proofread this document, sound alike and grammatical errors may occur. Clinically low risk for intracranial hemorrhage or skull fracture that require intervention Departure - Departure Disposition: 01 Home, Self Care Clinical Impression: Head injury Qualifiers: Encounter type: initial encounter Qualified Code(s): S09.90XA - Unspecified injury of head, initial encounter Condition: Good Instructions: ED Head Injury Closed Follow-Up: your,doctor in 1 week [Other] Comments: Return if you worsen.You can use motrin or tylenol as needed for pain. Return especially for worsening headaches, vomiting or changes in your mental status. Your will be home with you tonight. Forms: Activity restrictions
[2018-09-08 18:16] VITALS: BP 148/88
== END 2018-09-08 18:12 | disposition home or self-care (01) ==
LOC: ED 16:41
DX: S09.90XA Unspecified injury of head, initial encounter (principal); W01.0XXA Fall on same level from slipping, tripping and stumbling without subsequent striking against object, initial encounter; Y92.410 Unspecified street and highway as the place of occurrence of the external cause
CPT/HCPCS: 99282; 99283

== ENCOUNTER 2018-09-10 11:47 | Emergency (ER) | payer BC ==
[2018-09-10] MEDS ORDERED: METOCLOPRAMIDE 10 MG/2 ML VIAL IVP STA (12:40)
[2018-09-10] MEDS ORDERED: SODIUM CHLORIDE 0.9% 1,000 ML IV ONE (12:40)
--- NOTE | 2018-09-10 12:43 | ED Physician Documentation ---
PD HPI HEAD INJURY - Stated complaint Stated Complaint: SHAKING,UNABLE TO SPEAK,CONFUSED - Chief complaint Chief Complaint: Neuro - Additional information Additional information: 28-year-old female returns to the emergency department for reevaluation of a head injury. The patient fell 2 days ago in the inclement weather striking her head with a possible loss of consciousness. Since the event the patient has had worsening headache, spaciness, nausea, confusion and feeling generally unwell and shaky. The patient denies neck pain, chest trauma, extremity trauma, abdominal trauma or pelvic trauma. Symptoms are described as moderate. No attempts today at symptom management. No other associated symptoms. No relieving factors Review of Systems Constitutional: reports: Fatigue. denies: Fever Eyes: denies: Loss of vision, Discharge Ears: denies: Ear pain Nose: denies: Rhinorrhea / runny nose, Congestion Throat: denies: Sore throat Cardiac: denies: Chest pain / pressure Respiratory: denies: Dyspnea GI: denies: Abdominal Pain : denies: Dysuria Skin: denies: Rash Musculoskeletal: denies: Neck pain Neurologic: reports: Generalized weakness, Head injury. 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 - Past Surgical History Past Surgical History: Yes General: Gastric surgery HEENT: Tonsil/Adenoidectomy - Present Medications Home Medications: Ambulatory Orders Medication Instructions Recorded Confirmed Metoclopramide [Reglan] 10 mg PO Q6H PRN #30 tablet 09/10/18 Naproxen 500 mg PO BID PRN #60 tablet 09/10/18 - Allergies Allergies/Adverse Reactions: Allergies Allergy/AdvReac Type Severity Reaction Status Date / Time Penicillins Allergy Hives Verified 09/10/18 12:01 - Social History Does the pt smoke?: Yes Smoking Status: Current every day smoker Does the pt drink ETOH?: Yes Does the pt have substance abuse?: No - Immunizations Immunizations are current?: Yes - POLST Patient has POLST: No PD ED PE NORMAL - General General: Alert and oriented X 3. No: No acute distress (The patient appears uncomfortable) - HEENT HEENT: PERRL, EOMI, Ears normal (No hemotympanum), Moist mucous membranes, Pharynx benign - Neck Neck: Supple, no meningeal sign, No bony TTP (The patient has no tenderness along the cervical spinous processes and the cervical spine was cleared using the Nexus criteria) - Cardiac Cardiac: RRR, Strong equal pulses - Respiratory Respiratory: No respiratory distress, Clear bilaterally - Abdomen Abdomen: Soft, Non tender - Back Back: No spinal TTP - Derm Derm: Normal color - Extremities Extremities: No deformity, No tenderness to palpate, Normal ROM s pain, No edema - Neuro Neuro: Alert and oriented X 3, bathing suit maker 2-12 intact, No motor deficit, No sensory deficit, Normal speech Eye Opening: Spontaneous Motor: Obeys Commands Verbal: Oriented GCS Score: 15 - Psych Psych: Normal mood PD ED PE EXPANDED - HEENT HEENT Visual: 1 - abrasion (Frontal bone contusion with abrasion, no bogginess, no crepitus, no step-offs) Results - Vitals Vitals: Vital Signs - 24 hr 09/10/18 09/10/18 09/10/18 11:56 12:01 14:14 Temperature 36.7 C Heart Rate 95 95 85 Respiratory 14 14 18 Rate Blood Pressure 144/86 H 144/84 H 144/95 H O2 Saturation 98 98 97 Oxygen O2 Source Room air - Labs Labs: Laboratory Tests 09/10/18 09/10/18 09/10/18 12:05 12:50 12:50 WBC 7.6 RBC 4.14 L Hgb 12.6 Hct 37.8 MCV 91.4 MCH 30.5 MCHC 33.4 RDW 15.5 H Plt Count 224 MPV 8.2 Neut # (Auto) 6.3 Lymph # (Auto) 0.7 L [place] # (Auto) 0.6 Eos # (Auto) 0.0 Baso # (Auto) 0.1 Absolute Nucleated RBC 0.01 Nucleated RBC % 0.1 Sodium 134 L Potassium 4.3 Chloride 98 L Carbon Dioxide 20 L Anion Gap 16.0 H BUN 10 Creatinine 0.6 Estimated GFR (MDRD) 117 Glucose 78 POC Whole Bld Glucose 66 L Calcium 8.8 Total Bilirubin 1.2 H AST 91 H ALT 72 H Alkaline Phosphatase 54 Total Creatine Kinase 47 Total Protein 7.6 Albumin 4.2 Globulin 3.4 Albumin/Globulin Ratio 1.2 Lipase 31 Serum HCG, Qual NEGATIVE Urine Color Urine Clarity Urine pH Ur Specific [place] Urine Protein Urine Glucose (UA) Urine Ketones Urine Occult Blood Urine Nitrite Urine Bilirubin Urine Urobilinogen Ur Leukocyte Esterase Ur Microscopic Review Urine Culture Comments Ethyl Alcohol < 5.0 09/10/18 13:20 WBC RBC Hgb Hct MCV MCH MCHC RDW Plt Count MPV Neut # (Auto) Lymph # (Auto) [place] # (Auto) Eos # (Auto) Baso # (Auto) Absolute Nucleated RBC Nucleated RBC % Sodium Potassium Chloride Carbon Dioxide Anion Gap BUN Creatinine Estimated GFR (MDRD) Glucose POC Whole Bld Glucose Calcium Total Bilirubin AST ALT Alkaline Phosphatase Total Creatine Kinase Total Protein Albumin Globulin Albumin/Globulin Ratio Lipase Serum HCG, Qual Urine Color YELLOW Urine Clarity CLEAR Urine pH 5.5 Ur Specific [place] 1.025 Urine Protein NEGATIVE Urine Glucose (UA) NEGATIVE Urine Ketones 15 H Urine Occult Blood NEGATIVE Urine Nitrite NEGATIVE Urine Bilirubin NEGATIVE Urine Urobilinogen 0.2 (NORMAL) Ur Leukocyte Esterase NEGATIVE Ur Microscopic Review NOT INDICATED Urine Culture Comments NOT INDICATED Ethyl Alcohol PD MEDICAL DECISION MAKING - ED course ED course: Since the patient has a scalp contusion and this is her second visit for worsening symptoms related to a head injury a CT scan will be performed to rule out the possibility of a skull fracture or intracranial hemorrhage. Departure - Departure Disposition: 01 Home, Self Care Clinical Impression: Closed head injury Qualifiers: Encounter type: initial encounter Qualified Code(s): S09.90XA - Unspecified injury of head, initial encounter Concussion Qualifiers: Encounter type: initial encounter Loss of consciousness presence/duration: with LOC of unspecified duration Qualified Code(s): S06.0X9A - Concussion with loss of consciousness of unspecified duration, initial encounter Condition: Good Instructions: ED Head Injury Closed Ch, Brain Injury Mild Traum Concussion Prescriptions: Metoclopramide [Reglan] 10 mg PO Q6H PRN #30 tablet PRN Reason: Headache Naproxen 500 mg PO BID PRN #60 tablet PRN Reason: Pain Comments: Please follow-up with primary care for recheck. If your symptoms are not improving you may need an outpatient referral to neurology and possibly an outpatient MRI Please return to the emergency department for any worsening or any concerns Forms: Activity restrictions
[2018-09-10 13:07] LABS: BASOPHILS # (AUTO) 0.1 10^3/uL (0.0-0.1); BASOPHILS % (AUTO) 0.9 %; EOSINOPHILS % (AUTO) 0.2 %; HGB - HEMOGLOBIN 12.6 g/dL (12.0-16.0); LYMPHOCYTES # (AUTO) 0.7 10^3/uL (1.5-3.5); MEAN CORPUSCULAR HEMOGLOBIN 30.5 pg (27.0-31.0); MEAN CORPUSCULAR HGB CONC 33.4 g/dL (32.0-36.0); MEAN CORPUSCULAR VOLUME 91.4 fL (81.0-99.0); MEAN PLATELET VOLUME 8.2 fL (7.9-10.8); MONOCYTES # (AUTO) 0.6 10^3/uL (0.0-1.0); MONOCYTES % (AUTO) 7.3 %; NEUTROPHILS # (AUTO) 6.3 10^3/uL (1.5-6.6); NEUTROPHILS % (AUTO) 82.6 %; PLT - PLATELET COUNT 224 10^3/uL (130-450); RED BLOOD COUNT 4.14 10^6/uL (4.20-5.40); RED CELL DISTRIBUTION WIDTH 15.5 % (12.0-15.0); WHITE BLOOD COUNT 7.6 x10^3/uL (4.8-10.8)
[2018-09-10 13:20] LABS: ALBUMIN 4.2 g/dL (3.2-5.5); ALBUMIN/GLOBULIN RATIO 1.2 (1.0-2.2); ALKALINE PHOSPHATASE 54 IU/L (42-121); ALT ALANINE AMINOTRANSFERASE 72 IU/L (10-60); AST ASPARTATE AMINOTRANSFERASE 91 IU/L (10-42); BILIRUBIN,TOTAL 1.2 mg/dL (0.2-1.0); BUN - BLOOD UREA NITROGEN 10 mg/dL (6-20); CALCIUM 8.8 mg/dL (8.5-10.3); CARBON DIOXIDE - CO2 20 mmol/L (21-32); CHLORIDE 98 mmol/L (101-111); CK- CREATINE KINASE 47 IU/L (22-269); CREATININE 0.6 mg/dL (0.4-1.0); GFR - MDRD 117 (>89); GLUCOSE 78 mg/dL (70-100); LIPASE 31 U/L (22-51); SODIUM 134 mmol/L (135-145); TOTAL PROTEIN 7.6 g/dL (6.7-8.2)
[2018-09-10 13:21] LABS: HCG,QUALITATIVE BLOOD NEGATIVE
[2018-09-10 13:32] LABS: BILIRUBIN,URINE NEGATIVE (NEGATIVE); CLARITY,URINE CLEAR (CLEAR); GLUCOSE, URINE (UA) NEGATIVE (NEGATIVE); KETONES,URINE (UA) 15 mg/dL (NEGATIVE); LEUKOCYTE ESTERASE, URINE NEGATIVE (NEGATIVE); NITRITE,URINE NEGATIVE (NEGATIVE); OCCULT BLOOD,URINE NEGATIVE (NEGATIVE); PH,URINE 5.5 PH (5.0-7.5); PROTEIN,URINE NEGATIVE (NEGATIVE); UROBILINOGEN,URINE 0.2 (NORMAL) E.U./dL (NORMAL)
[2018-09-10] MEDS ORDERED: KETOROLAC 15 MG/ML VIAL IVP STA (13:44)
--- NOTE | 2018-09-10 14:10 | CT Report ---
Reason: Head injury, With worsening postconcussive symptom Procedure Date: 09/10/2018 Accession Number: [id number] / [id number] Procedure: CT - Head W/O CPT Code: FULL RESULT: EXAM: CT HEAD EXAM DATE: 09/10/2018 01:31 PM. CLINICAL HISTORY: Head injury, With worsening postconcussive symptom. COMPARISON: None. TECHNIQUE: Multiaxial CT images were obtained from the foramen magnum to the vertex. Reformats: Sagittal and coronal. IV contrast: None. In accordance with CT protocol optimization, one or more of the following dose reduction techniques were utilized for this exam: automated exposure control, adjustment of mA and/or KV based on patient size, or use of iterative reconstructive technique. FINDINGS: Parenchyma: No intraparenchymal hemorrhage. No evidence of mass, midline shift, or CT findings of infarction. Sparks-white differentiation is distinct. Extraaxial Spaces: Normal for age. No subdural or epidural collections identified. Ventricles: Normal in size and position. Sinuses and Orbits: There is mucosal thickening in the right sphenoid sinus. Other paranasal sinuses and mastoid sinuses are clear. Bones: No evidence of fracture or calvarial defect. Other: None. IMPRESSION: Negative for an acute or focal intracranial abnormality. RADIA
[2018-09-10 15:05] VITALS: BP 141/77
== END 2018-09-10 15:06 | disposition home or self-care (01) ==
LOC: ED 11:47
DX: S06.0X9A Concussion with loss of consciousness of unspecified duration, initial encounter (principal); S00.03XA Contusion of scalp, initial encounter; S00.01XA Abrasion of scalp, initial encounter; W01.10XA Fall on same level from slipping, tripping and stumbling with subsequent striking against unspecified object, initial encounter
CPT/HCPCS: 36415; 70450; 80053; 80320; 81003; 82550; 83690; 84703; 85025; 96374; 96375; 99283; J2765; 81001; 87086

== ENCOUNTER 2019-04-09 12:18 | Emergency (ER) | payer SELFPAY ==
[2019-04-09] MEDS ORDERED: PANTOPRAZOLE 40 MG VIAL IVP STA (12:54)
[2019-04-09] MEDS ORDERED: SUCRALFATE 1 GM/10 ML UDC PO STA (12:54)
[2019-04-09] MEDS ORDERED: FAMOTIDINE 20 MG/2 ML VIAL IVP STA (12:54)
[2019-04-09] MEDS ORDERED: MAG HYDROX/AL HYDROX/SIMETH 30 ML UDC PO STA (12:54)
[2019-04-09] MEDS ORDERED: FOLIC ACID INJ 1 MG, THIAMINE INJ 100 MG, MAGNESIUM SULFATE 2 GM, MULTIVITAMIN 10 ML in... IV STA ×5 (12:54)
--- NOTE | 2019-04-09 13:00 | ED Physician Documentation ---
History of Present Illness - Stated complaint Stated Complaint: ABD PAIN - Chief complaint Chief Complaint: Abd Pain - History obtained from History obtained from: Patient, Family - History of Present Illness Pain level max: 7 Pain level now: 6 - Additonal information Additional information: 28-year-old female presents to the emergency department with multiple medical issues. The first is abdominal pain, intermittent for the past several weeks, seems to be worsening. Mainly epigastric and radiates to the bilateral flank. Worse with eating and drinking. She drinks an 18 pack of beer daily. Has had pink-tinged in her vomit as well as dark tarry stools. Her stools appear black and the toilet bowl turned red when she flushes. She also states that she has a light pink tinge to her urine. No dysuria or frequency. She also states she has been more tired than usual lately and feels dizzy upon standing in the morning. Nothing makes any of this better. She states she has had to have 2 blood transfusions in the past. She is not currently on any medications at home. Denies any aspirin or NSAID use. She states she is supposed to be on iron, but this upsets her stomach. 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 04/09/19 Sucralfate [Carafate] 1 gm PO ACHS #60 tablet 04/09/19 - Allergies Allergies/Adverse Reactions: Allergies Allergy/AdvReac Type Severity Reaction Status Date / Time Penicillins Allergy Hives Verified 04/09/19 12:28 - Social History Does the pt smoke?: Yes Smoking Status: Current every day smoker Does the pt drink ETOH?: Yes Does the pt have substance abuse?: Yes Substance Use and Type: Marijuana - Immunizations Immunizations are current?: Yes - POLST Patient has POLST: No PD ED PE NORMAL - Vitals Vital signs reviewed: Yes - General General: Alert and oriented X 3, No acute distress, Well developed/nourished - HEENT HEENT: PERRL, Moist mucous membranes - Neck Neck: Supple, no meningeal sign - Cardiac Cardiac: RRR, Strong equal pulses - Respiratory Respiratory: No respiratory distress, Clear bilaterally - Abdomen Abdomen: Soft, Non distended, Other (TTP epigastric without peritoneal signs.) - Back Back: No CVA TTP, No spinal TTP - Derm Derm: Warm and dry, No rash - Extremities Extremities: No edema - Neuro Neuro: Alert and oriented X 3 - Psych Psych: Normal mood, Normal affect Results - Vitals Vitals: Vital Signs - 24 hr 04/09/19 04/09/19 04/09/19 12:25 14:28 16:20 Temperature 36.6 C Heart Rate 100 85 88 Respiratory 18 18 18 Rate Blood Pressure 146/116 H 131/89 H 127/88 H O2 Saturation 96 98 97 Oxygen O2 Source Room air - Labs Labs: Laboratory Tests 04/09/19 04/09/19 04/09/19 13:00 13:00 13:00 WBC 6.6 RBC 4.45 Hgb 14.4 Hct 42.4 MCV 95.3 MCH 32.4 H MCHC 34.0 RDW 12.7 Plt Count 146 MPV 10.5 Neut # (Auto) 3.6 Lymph # (Auto) 1.8 [place] # (Auto) 1.0 Eos # (Auto) 0.1 Baso # (Auto) 0.1 Absolute Nucleated RBC 0.00 Nucleated RBC % 0.0 PT INR APTT Sodium 134 L Potassium 3.8 Chloride 98 L Carbon Dioxide 21 Anion Gap 15.0 H BUN < 5 L Creatinine 0.5 Estimated GFR (MDRD) 145 Glucose 87 Calcium 8.4 L Phosphorus 3.8 Magnesium 2.2 Total Bilirubin 0.8 AST 421 H ALT 113 H Alkaline Phosphatase 147 H Total Protein 7.7 Albumin 3.6 Globulin 4.1 Albumin/Globulin Ratio 0.9 L Lipase 75 H TSH 1.40 Free T4 0.60 Urine Color Urine Clarity Urine pH Ur Specific [place] Urine Protein Urine Glucose (UA) Urine Ketones Urine Occult Blood Urine Nitrite Urine Bilirubin Urine Urobilinogen Ur Leukocyte Esterase Ur Microscopic Review Urine Culture Comments Urine HCG, Qual Ethyl Alcohol 258.5 Blood Type Antibody Screen 04/09/19 04/09/19 04/09/19 13:00 13:25 13:45 WBC RBC Hgb Hct MCV MCH MCHC RDW Plt Count MPV Neut # (Auto) Lymph # (Auto) [place] # (Auto) Eos # (Auto) Baso # (Auto) Absolute Nucleated RBC Nucleated RBC % PT 12.0 INR 1.1 APTT 32.3 Sodium Potassium Chloride Carbon Dioxide Anion Gap BUN Creatinine Estimated GFR (MDRD) Glucose Calcium Phosphorus Magnesium Total Bilirubin AST ALT Alkaline Phosphatase Total Protein Albumin Globulin Albumin/Globulin Ratio Lipase TSH Free T4 Urine Color LT. YELLOW Urine Clarity CLEAR Urine pH 6.0 Ur Specific [place] <=1.005 Urine Protein NEGATIVE Urine Glucose (UA) NEGATIVE Urine Ketones NEGATIVE Urine Occult Blood NEGATIVE Urine Nitrite NEGATIVE Urine Bilirubin NEGATIVE Urine Urobilinogen 0.2 (NORMAL) Ur Leukocyte Esterase NEGATIVE Ur Microscopic Review NOT INDICATED Urine Culture Comments NOT INDICATED Urine HCG, Qual Ethyl Alcohol Blood Type O POSITIVE Antibody Screen NEGATIVE 04/09/19 13:45 WBC RBC Hgb Hct MCV MCH MCHC RDW Plt Count MPV Neut # (Auto) Lymph # (Auto) [place] # (Auto) Eos # (Auto) Baso # (Auto) Absolute Nucleated RBC Nucleated RBC % PT INR APTT Sodium Potassium Chloride Carbon Dioxide Anion Gap BUN Creatinine Estimated GFR (MDRD) Glucose Calcium Phosphorus Magnesium Total Bilirubin AST ALT Alkaline Phosphatase Total Protein Albumin Globulin Albumin/Globulin Ratio Lipase TSH Free T4 Urine Color Urine Clarity Urine pH Ur Specific [place] <=1.005 Urine Protein Urine Glucose (UA) Urine Ketones Urine Occult Blood Urine Nitrite Urine Bilirubin Urine Urobilinogen Ur Leukocyte Esterase Ur Microscopic Review Urine Culture Comments Urine HCG, Qual NEGATIVE Ethyl Alcohol Blood Type Antibody Screen - Rads (name of study) abd/pelvis CT Radiology: Prelim report reviewed, EMP read contemporaneously, See rad report (No acute abnormality) PD MEDICAL DECISION MAKING - ED course Complexity details: reviewed results, re-evaluated patient, considered differential, d/w patient, d/w family ED course: 28-year-old female presents to the emergency department what appears to be an alcoholic gastritis. This is complicated by melena. Hemoglobin is normal. Vital signs are stable. Symptoms resolved with Protonix, Pepcid and Carafate. Tolerating p.o. without difficulty. No acute findings on CT. Her meld score and mattress discriminant function score are both low. She does have elevated LFTs. We will have these rechecked by her doctor. Counseled her and her regarding the need to stop drinking and smoking as this will kill her. Patient and family counseled regarding signs and symptoms for which I believe and urgent re-evaluation would be necessary. Patient with good understanding of and agreement to plan and is comfortable going home at this time This document was made in part using voice recognition software. While efforts are made to proofread this document, sound alike and grammatical errors may occur. Departure - Departure Disposition: 01 Home, Self Care Clinical Impression: Alcoholism Alcohol intoxication Qualifiers: Complication of substance-induced condition: uncomplicated Qualified Code(s): F10.920 - Alcohol use, unspecified with intoxication, uncomplicated Alcoholic gastritis Qualifiers: Chronicity: acute Gastritis bleeding: with bleeding Qualified Code(s): K29.21 - Alcoholic gastritis with bleeding Alcoholic hepatitis Qualifiers: Ascites presence: without ascites Qualified Code(s): K70.10 - Alcoholic hepatitis without ascites Condition: Stable Instructions: ED Gastritis, ED Alcohol Abuse Follow-Up: Valentino Trujillo MD [Primary Care Provider] - Within 1 week Prescriptions: Famotidine [Pepcid] 20 mg PO BID #60 tablet Ondansetron Odt [Zofran] 4 mg TL Q6H PRN #10 tablet PRN Reason: Nausea / Vomiting Pantoprazole Sodium [Protonix] 40 mg PO DAILY #30 tablet. Sucralfate [Carafate] 1 gm PO ACHS #60 tablet Comments: Use the medications as prescribed. Return if you worsen. You need to have your liver function test rechecked in 1 week with your doctor. It would also benefit your health greatly to stop drinking alcohol and stop smoking cigarettes. Discharge Date/Time: 04/09/19 16:51
[2019-04-09] MEDS ORDERED: ONDANSETRON 4 MG/2 ML VIAL IVP STA (13:05)
[2019-04-09 13:06] LABS: BASOPHILS # (AUTO) 0.1 10^3/uL (0.0-0.1); BASOPHILS % (AUTO) 1.2 %; EOSINOPHILS # (AUTO) 0.1 10^3/uL (0.0-0.7); EOSINOPHILS % (AUTO) 1.7 %; HGB - HEMOGLOBIN 14.4 g/dL (12.0-16.0); LYMPHOCYTES # (AUTO) 1.8 10^3/uL (1.5-3.5); LYMPHOCYTES % (AUTO) 27.7 %; MEAN CORPUSCULAR HEMOGLOBIN 32.4 pg (27.0-31.0); MEAN CORPUSCULAR VOLUME 95.3 fL (81.0-99.0); MEAN PLATELET VOLUME 10.5 fL (7.9-10.8); MONOCYTES % (AUTO) 15.2 %; NEUTROPHILS # (AUTO) 3.6 10^3/uL (1.5-6.6); NEUTROPHILS % (AUTO) 53.7 %; PLT - PLATELET COUNT 146 10^3/uL (130-450); RED BLOOD COUNT 4.45 10^6/uL (4.20-5.40); RED CELL DISTRIBUTION WIDTH 12.7 % (12.0-15.0); WHITE BLOOD COUNT 6.6 x10^3/uL (4.8-10.8)
[2019-04-09] MEDS ORDERED: IOVERSOL 320 100 ML VIAL IVP ONE ×2 (13:17→14:23)
[2019-04-09 13:36] LABS: THYROID STIMULATING HORMONE 1.4 uIU/mL (0.34-5.60)
[2019-04-09 13:38] LABS: FREE T4 (FREE THYROXINE) 0.6 ng/dL (0.58-1.64)
[2019-04-09 13:39] LABS: ALBUMIN 3.6 g/dL (3.2-5.5); ALBUMIN/GLOBULIN RATIO 0.9 (1.0-2.2); ALKALINE PHOSPHATASE 147 IU/L (42-121); ALT ALANINE AMINOTRANSFERASE 113 IU/L (10-60); AST ASPARTATE AMINOTRANSFERASE 421 IU/L (10-42); BILIRUBIN,TOTAL 0.8 mg/dL (0.2-1.0); BUN - BLOOD UREA NITROGEN < 5 mg/dL (6-20); CALCIUM 8.4 mg/dL (8.5-10.3); CARBON DIOXIDE - CO2 21 mmol/L (21-32); CHLORIDE 98 mmol/L (101-111); CREATININE 0.5 mg/dL (0.4-1.0); GFR - MDRD 145 (>89); GLUCOSE 87 mg/dL (70-100); LIPASE 75 U/L (22-51); MAGNESIUM 2.2 mg/dL (1.7-2.8); PHOSPHORUS 3.8 mg/dL (2.5-4.6); SODIUM 134 mmol/L (135-145); TOTAL PROTEIN 7.7 g/dL (6.7-8.2)
[2019-04-09 14:03] LABS: BILIRUBIN,URINE NEGATIVE (NEGATIVE); GLUCOSE, URINE (UA) NEGATIVE (NEGATIVE); KETONES,URINE (UA) NEGATIVE (NEGATIVE); LEUKOCYTE ESTERASE, URINE NEGATIVE (NEGATIVE); NITRITE,URINE NEGATIVE (NEGATIVE); OCCULT BLOOD,URINE NEGATIVE (NEGATIVE); PROTEIN,URINE NEGATIVE (NEGATIVE); UROBILINOGEN,URINE 0.2 (NORMAL) E.U./dL (NORMAL)
[2019-04-09 14:06] LABS: CLARITY,URINE CLEAR (CLEAR)
[2019-04-09 14:07] LABS: HCG UR QUAL NEGATIVE
[2019-04-09 14:35] LABS: INR 1.1 (0.8-1.2)
[2019-04-09 14:42] LABS: PARTIAL THROMBOPLASTIN TIME 32.3 secs (24.9-33.3)
[2019-04-09 16:21] VITALS: BP 127/88
--- NOTE | 2019-04-09 16:28 | CT Report ---
Reason: abd pain, melena Procedure Date: 04/09/2019 Accession Number: [id number] / [id number] Procedure: CT - Abdomen/Pelvis W CPT Code: FULL RESULT: EXAM: CT ABDOMEN AND PELVIS EXAM DATE: 04/09/2019 02:31 PM. CLINICAL HISTORY: Abdominal pain and melena. COMPARISONS: ABDOMEN/PELVIS W/ 04/12/2018 10:21 AM. TECHNIQUE: Routine helical CT imaging was performed through the abdomen and pelvis. IV contrast: 90 mL Optiray 320. Enteric contrast: No. Reconstructions: Coronal and sagittal. In accordance with CT protocol optimization, one or more of the following dose reduction techniques were utilized for this exam: automated exposure control, adjustment of mA and/or KV based on patient size, or use of iterative reconstructive technique. FINDINGS: Lung Bases: Stable benign 3 mm left lower lobe nodule (image 17/3). Liver: Fatty liver. No masses. Gallbladder/Bile Ducts: Unremarkable. Spleen: Normal. Pancreas: Normal. Adrenal Glands: Normal. Kidneys: Normal. No masses or hydronephrosis. Peritoneal Cavity/Bowel: There are postoperative changes related to gastric bypass procedure. There is no obstruction or ileus. The appendix is well visualized and normal. Pelvic Organs: Normal. The bladder and visualized pelvic organs are within normal limits. Vasculature: No aneurysms or other significant abnormality. Bones: No significant abnormality. Other: None. IMPRESSION: No acute intra-abdominal abnormality demonstrated status post gastric bypass surgery. RADIA
== END 2019-04-09 16:51 | disposition home or self-care (01) ==
LOC: ED 12:18
DX: K29.21 Alcoholic gastritis with bleeding (principal); K70.10 Alcoholic hepatitis without ascites; F10.229 Alcohol dependence with intoxication, unspecified; F17.200 Nicotine dependence, unspecified, uncomplicated; Z98.84 Bariatric surgery status
CPT/HCPCS: 36415; 74177; 80320; 81003; 81025; 83690; 83735; 84100; 84439; 85610; 85730; 86850; 86900; 86901; 96365; 96366; 96375; 99284; 99285; A9270; J3411; Q9967; 80053; 81001; 84443; 85025; 87086

== ENCOUNTER 2020-06-10 01:30 | Emergency (ER) | payer SELFPAY ==
[2020-06-10 02:09] LABS: BILIRUBIN,URINE NEGATIVE (NEGATIVE); CLARITY,URINE CLEAR (CLEAR); GLUCOSE, URINE (UA) NEGATIVE (NEGATIVE); KETONES,URINE (UA) NEGATIVE (NEGATIVE); LEUKOCYTE ESTERASE, URINE NEGATIVE (NEGATIVE); NITRITE,URINE NEGATIVE (NEGATIVE); OCCULT BLOOD,URINE NEGATIVE (NEGATIVE); PROTEIN,URINE NEGATIVE (NEGATIVE); UROBILINOGEN,URINE 0.2 (NORMAL) E.U./dL (NORMAL)
[2020-06-10 02:12] LABS: BASOPHILS # (AUTO) 0.1 10^3/uL (0.0-0.1); BASOPHILS % (AUTO) 1.3 %; EOSINOPHILS # (AUTO) 0.2 10^3/uL (0.0-0.7); LYMPHOCYTES # (AUTO) 1.9 10^3/uL (1.5-3.5); LYMPHOCYTES % (AUTO) 30.3 %; MEAN CORPUSCULAR HEMOGLOBIN 32.5 pg (27.0-31.0); MEAN CORPUSCULAR HGB CONC 34.6 g/dL (32.0-36.0); MEAN CORPUSCULAR VOLUME 93.9 fL (81.0-99.0); MEAN PLATELET VOLUME 10.7 fL (7.9-10.8); MONOCYTES # (AUTO) 0.9 10^3/uL (0.0-1.0); MONOCYTES % (AUTO) 13.6 %; NEUTROPHILS # (AUTO) 3.3 10^3/uL (1.5-6.6); NEUTROPHILS % (AUTO) 51.5 %; PLT - PLATELET COUNT 146 10^3/uL (130-450); RED BLOOD COUNT 4.62 10^6/uL (4.20-5.40); RED CELL DISTRIBUTION WIDTH 14.3 % (12.0-15.0); WHITE BLOOD COUNT 6.3 x10^3/uL (4.8-10.8)
[2020-06-10 02:22] LABS: ALBUMIN 4.1 g/dL (3.2-5.5); ALBUMIN/GLOBULIN RATIO 0.9 (1.0-2.2); CALCIUM 9.1 mg/dL (8.5-10.3); CREATININE 0.7 mg/dL (0.4-1.0); TOTAL PROTEIN 8.8 g/dL (6.7-8.2)
[2020-06-10] MEDS ORDERED: ONDANSETRON 4 MG/2 ML VIAL IVP STA (02:43)
[2020-06-10] MEDS ORDERED: SODIUM CHLORIDE 0.9% 1,000 ML IV STA (02:43)
[2020-06-10 02:52] LABS: HCG UR QUAL NEGATIVE
[2020-06-10 05:43] VITALS: BP 127/78
--- NOTE | 2020-06-10 07:29 | XRAY Report ---
PROCEDURE: Chest 2 View X-Ray INDICATIONS: cough, chest pain TECHNIQUE: 2 view(s) of the chest. COMPARISON: None. FINDINGS: Surgical changes and devices: None. Lungs and pleura: No pleural effusions or pneumothorax. Lungs are clear. Mediastinum: Mediastinal contours are normal. Heart size is normal. Bones and chest wall: No suspicious bony abnormalities. Soft tissues appear unremarkable. IMPRESSION: 1. Normal chest. 2. Concordant with preliminary report. Reviewed by: Marifer Fonseca MD on 06/10/2020 7:28 AM PST Approved by: Marifer Fonseca MD on 06/10/2020 7:28 AM [facility] Station ID: [id number]
--- NOTE | 2020-06-20 19:58 | ED Physician Documentation ---
PD HPI NVD - Stated complaint Stated Complaint: VOMITING - Chief complaint Chief Complaint: Abd Pain - History obtained from History obtained from: Patient - History of Present Illness Timing - onset: How many days ago (3-4) Timing - details: Gradual onset, Waxing and waning Pain level now: 4 Associated symptoms: Abdominal pain Improved by: Other (nothing) Worsened by: Eating Similar symptoms before: No diagnosis Recently seen: Not recently seen - Additonal information Additional information: c/o 3-4 days of generalized abdominal cramping pain with chief complaint of nausea and vomiting. She says she cannot keep almost any PO down except sips of gatorade. denies fevers. c/o generalized fatigue and malaise. Review of Systems Constitutional: reports: Fatigue. denies: Fever, Chills, Sweats Cardiac: reports: Reviewed and negative Respiratory: reports: Reviewed and negative GI: reports: Abdominal Pain, Nausea, Vomiting. 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 : None HEENT: None Psych: Depression, Anxiety Musculoskeletal: None Derm: None - Past Surgical History Past Surgical History: Yes General: Gastric surgery HEENT: Tonsil/Adenoidectomy - Present Medications Home Medications: Ambulatory Orders Medication Instructions Recorded Confirmed Ondansetron Odt [Zofran Odt] 4 mg TL Q6H PRN #10 tablet 06/10/20 - Allergies Allergies/Adverse Reactions: Allergies Allergy/AdvReac Type Severity Reaction Status Date / Time Penicillins Allergy Hives Verified 06/10/20 01:37 - Social History Does the pt smoke?: Yes Smoking Status: Current every day smoker Does the pt drink ETOH?: Yes Does the pt have substance abuse?: Yes - Immunizations Immunizations are current?: Yes - POLST Patient has POLST: No PD ED PE NORMAL - Vitals Vital signs reviewed: Yes - General General: Alert and oriented X 3, No acute distress, Well developed/nourished - HEENT HEENT: Other (tacky/pasty mucous membranes) - Neck Neck: Supple, no meningeal sign - Cardiac Cardiac: No murmur - Respiratory Respiratory: No respiratory distress, Clear bilaterally - Abdomen Abdomen: Normal bowel sounds, Soft, Non tender, Non distended - Back Back: No CVA TTP - Derm Derm: Normal color PD ED PE EXPANDED - Cardiac Cardiac: Tachy, Regular Rhythm Results - Vitals Vitals: Oxygen O2 Source Room air - Labs Labs: Laboratory Tests 06/10/20 06/10/20 06/10/20 02:00 02:00 02:00 WBC 6.3 RBC 4.62 Hgb 15.0 Hct 43.4 MCV 93.9 MCH 32.5 H MCHC 34.6 RDW 14.3 Plt Count 146 MPV 10.7 Neut # (Auto) 3.3 Lymph # (Auto) 1.9 Emmet # (Auto) 0.9 Eos # (Auto) 0.2 Baso # (Auto) 0.1 Absolute Nucleated RBC 0.00 Nucleated RBC % 0.0 Sodium 134 L Potassium 3.6 Chloride 98 L Carbon Dioxide 20 L Anion Gap 16.0 H BUN 6 Creatinine 0.7 Estimated GFR (MDRD) 98 Glucose 106 H Calcium 9.1 Total Bilirubin 1.0 AST 97 H ALT 69 H Alkaline Phosphatase 146 H Total Protein 8.8 H Albumin 4.1 Globulin 4.7 H Albumin/Globulin Ratio 0.9 L Lipase 43 Urine Color Urine Clarity Urine pH Ur Specific [place] <=1.005 Urine Protein Urine Glucose (UA) Urine Ketones Urine Occult Blood Urine Nitrite Urine Bilirubin Urine Urobilinogen Ur Leukocyte Esterase Ur Microscopic Review Urine Culture Comments Urine HCG, Qual NEGATIVE 06/10/20 02:04 WBC RBC Hgb Hct MCV MCH MCHC RDW Plt Count MPV Neut # (Auto) Lymph # (Auto) Emmet # (Auto) Eos # (Auto) Baso # (Auto) Absolute Nucleated RBC Nucleated RBC % Sodium Potassium Chloride Carbon Dioxide Anion Gap BUN Creatinine Estimated GFR (MDRD) Glucose Calcium Total Bilirubin AST ALT Alkaline Phosphatase Total Protein Albumin Globulin Albumin/Globulin Ratio Lipase Urine Color YELLOW Urine Clarity CLEAR Urine pH 6.0 Ur Specific [place] <=1.005 Urine Protein NEGATIVE Urine Glucose (UA) NEGATIVE Urine Ketones NEGATIVE Urine Occult Blood NEGATIVE Urine Nitrite NEGATIVE Urine Bilirubin NEGATIVE Urine Urobilinogen 0.2 (NORMAL) Ur Leukocyte Esterase NEGATIVE Ur Microscopic Review NOT INDICATED Urine Culture Comments NOT INDICATED Urine HCG, Qual PD MEDICAL DECISION MAKING - ED course Complexity details: reviewed old records, reviewed results, re-evaluated patient, considered differential, d/w patient ED course: after IV fluids and zofran, patient appears comfortable, NAD and reports feeling improved and comfortable with d/c home. we discussed the relevant abnormalities on her blood work, specifically the LFTs. I d/w her that these abnormalities (AST/ALT in particular) have been abnormal on previous tests so this is not an emergent/new finding, but that she needs to f/u with PMD, as further tests might be indicated such as repeat LFTs, possibly further tests to determine why these have been elevated. tachycardia resolved during ED stay with IV fluids Departure - Departure Disposition: 01 Home, Self Care Clinical Impression: Vomiting Qualifiers: Vomiting type: unspecified Vomiting Intractability: non-intractable Nausea presence: with nausea Qualified Code(s): R11.2 - Nausea with vomiting, unspecified Condition: Good Instructions: ED Nausea Vomiting Prescriptions: Ondansetron Odt [Zofran Odt] 4 mg TL Q6H PRN #10 tablet PRN Reason: Nausea / Vomiting Discharge Date/Time: 06/10/20 06:00
== END 2020-06-10 06:00 | disposition home or self-care (01) ==
LOC: ED 01:30
DX: R11.2 Nausea with vomiting, unspecified (principal); R10.84 Generalized abdominal pain; R74.8 Abnormal levels of other serum enzymes; R00.0 Tachycardia, unspecified; F17.200 Nicotine dependence, unspecified, uncomplicated
CPT/HCPCS: 36415; 71046; 80053; 81001; 81003; 81025; 83690; 85025; 87086; 96361; 96374; 99284

== ENCOUNTER 2022-05-30 03:32 | Outpatient (CLI) | payer BC | END 2022-05-30 03:33 | disposition short-term general hospital (02) | LOC: EMS 03:32 | DX: S01.332A Puncture wound without foreign body of left ear, initial encounter (principal); R53.1 Weakness; I95.9 Hypotension, unspecified; X99.1XXA Assault by knife, initial encounter; Y92.009 Unspecified place in unspecified non-institutional (private) residence as the place of occurrence of the external cause; Z72.89 Other problems related to lifestyle | CPT/HCPCS: A0425; A0427 ==